=== PATIENT | female | born 1965 | race Hispanic/Latino ===

== ENCOUNTER 2019-02-25 14:11 | Emergency (ER) | payer OTHER ==
[2019-02-25] MEDS ORDERED: IBUPROFEN 200 MG TAB PO ONE (16:10)
[2019-02-25] MEDS ORDERED: HYDROCODONE/APAP 5/325 MG TAB ONE (16:10)
[2019-02-25] MEDS ORDERED: IBUPROFEN 400 MG TAB ONE (16:10)
--- NOTE | 2019-02-25 16:17 | RAD REPORT ---
EXAM DESCRIPTION: CT - Head Brain Wo Cont - 02/25/2019 4:09 pm CLINICAL HISTORY: Fall injury Fall, trauma, head injury COMPARISON: <Comparisons> TECHNIQUE: All CT scans are performed using dose optimization technique as appropriate and may inclu de automated exposure control or mA/KV adjustment according to patient size. FINDINGS: No intracranial hemorrhage, hydrocephalus or extra-axial fluid collection.No areas of brai n edema or evidence of midline shift. The paranasal sinuses and mastoids are clear. The calvarium is intact. IMPRESSION: No acute intracranial abnormality.
--- NOTE | 2019-02-25 16:43 | RAD REPORT ---
EXAM DESCRIPTION: RAD - Hand Right 3 View - 02/25/2019 4:39 pm CLINICAL HISTORY: PAIN Trauma, fall, pain COMPARISON: No comparisons FINDINGS: Mild osteoarthritic changes of fall the radiocarpal joint. No acute fracture or dislocatio n.
--- NOTE | 2019-02-25 16:45 | RAD REPORT ---
EXAM DESCRIPTION: RAD - Elbow Left 3 View - 02/25/2019 4:39 pm CLINICAL HISTORY: PAIN Fall, trauma, pain COMPARISON: No comparisons FINDINGS: Lucency is seen in the radial head most compatible with nondisplaced radial head fracture. Anterior and posterior fat pad elevation is noted. IMPRESSION: Nondisplaced radial head fracture.
--- NOTE | 2019-02-25 16:45 | RAD REPORT ---
EXAM DESCRIPTION: RAD - Wrist Left 3 View - 02/25/2019 4:39 pm CLINICAL HISTORY: PAIN Pain COMPARISON: <Comparisons> FINDINGS: No fracture or dislocation seen. Mild radiocarpal osteoarthritis seen.
--- NOTE | 2019-02-25 16:47 | RAD REPORT ---
EXAM DESCRIPTION: RAD - Hip Right 2 View - 02/25/2019 4:39 pm CLINICAL HISTORY: PAIN COMPARISON: No comparisons FINDINGS: No acute fracture or dislocation.
--- NOTE | 2019-02-25 16:48 | RAD REPORT ---
EXAM DESCRIPTION: RAD - Knee Right 3 View - 02/25/2019 4:38 pm CLINICAL HISTORY: PAIN Fall, pain COMPARISON: No comparisons FINDINGS: Mild medial compartment space narrowing is seen. No fracture or dislocation. Trace suprapa tellar joint effusion.
--- NOTE | 2019-02-25 18:04 | EDPHYS ---
Physician Documentation [facility] Name: Lyla Melo Age: 53 yrs Sex: Female : 1965 Arrival Date: 02/25/2019 Time: 14:16 Bed 9 Private MD: ED Physician Orlando Damon HPI: 02/25 17:00 This 53 yrs old Female presents to ER via EMS with complaints of Fall Injury. pm1 17:00 Details of fall: The patient fell from an upright position, while walking. Onset: The pm1 symptoms/episode began/occurred just prior to arrival. Associated injuries: The patient sustained left elbow, left wrist, right hand, right hip, right knee, and abrasion to nose. Severity of symptoms: in the emergency department the symptoms are unchanged. The patient has not experienced similar symptoms in the past. The patient has not recently seen a physician. Patient tripped on uneven curve and landed with her hands out in front of her. Patient uncertain if she had LOC. No neck pain or current headache. Historical: - Allergies: 14:23 No Known Allergies; sv - PMHx: 14:23 Diabetes - IDDM; sv - PSHx: 14:23 Cholecystectomy; ; sv - Immunization history:: Adult Immunizations up to date. - Social history:: Smoking status: Patient uses tobacco products. - Ebola Screening: : Patient denies travel to an Ebola-affected area in the 21 days before illness onset. ROS: 19:00 Constitutional: Negative for fever, chills, and weight loss, Eyes: Negative for injury, pm1 pain, redness, and discharge, ENT: Negative for injury, pain, and discharge, Neck: Negative for injury, pain, and swelling, Cardiovascular: Negative for chest pain, palpitations, and edema, Respiratory: Negative for shortness of breath, cough, wheezing, and pleuritic chest pain, Abdomen/GI: Negative for abdominal pain, nausea, vomiting, diarrhea, and constipation, Back: Negative for injury and pain, : Negative for injury, bleeding, discharge, and swelling. 19:00 Skin: Negative for injury, rash, and discoloration, Neuro: Negative for headache, weakness, numbness, tingling, and seizure. 19:00 MS/extremity: Positive for pain, of the left elbow and left wrist, right knee, right hip and right hand. Exam: 19:00 Constitutional: This is a well developed, well nourished patient who is awake, alert, pm1 and in no acute distress. Eyes: Pupils equal round and reactive to light, extra-ocular motions intact. Lids and lashes normal. Conjunctiva and sclera are non-icteric and not injected. Cornea within normal limits. Periorbital areas with no swelling, redness, or edema. ENT: Nares patent. No nasal discharge, no septal abnormalities noted. Tympanic membranes are normal and external auditory canals are clear. Oropharynx with no redness, swelling, or masses, exudates, or evidence of obstruction, uvula midline. Mucous membranes moist. Neck: Trachea midline, no thyromegaly or masses palpated, and no cervical lymphadenopathy. Supple, full range of motion without nuchal rigidity, or vertebral point tenderness. No Meningismus. Chest/axilla: Normal chest wall appearance and motion. Nontender with no deformity. No lesions are appreciated. Cardiovascular: Regular rate and rhythm with a normal S1 and S2. No gallops, murmurs, or rubs. Normal PMI, no JVD. No pulse deficits. Respiratory: Lungs have equal breath sounds bilaterally, clear to auscultation and percussion. No rales, rhonchi or wheezes noted. No increased work of breathing, no retractions or nasal flaring. Abdomen/GI: Soft, non-tender, with normal bowel sounds. No distension or tympany. No guarding or rebound. No evidence of tenderness throughout. 19:00 Back: No spinal tenderness. No costovertebral tenderness. Full range of motion. 19:00 Head/face: Exam is negative for barraza signs, deformity, raccoon eyes, Noted is no obvious of injury or deformity except abrasion(s), of the nose. 19:00 Skin: Appearance: normal except for affected area, injury, abrasion(s), small abrasion noted, of the right knee and nose. Vital Signs: 14:22 BP 111 / 85; Pulse 94; Resp 20; Temp 97.5; Pulse Ox 98% ; Weight 78.47 kg; Height 5 ft. sv 2 in. (157.48 cm); Pain 5/10; 19:00 BP 107 / 65; Pulse 78; Resp 18; Pulse Ox 96% on R/A; aj1 14:22 Body Mass Index 31.64 (78.47 kg, 157.48 cm) sv MDM: 15:42 Patient medically screened. brielle 15:56 ED course: Patient reports tetanus shot from PCP Rafa within the past year. pm1 17:54 Data reviewed: vital signs. Data interpreted: Pulse oximetry: on room air is 98 %. pm1 Interpretation: normal. Counseling: I had a detailed discussion with the patient and/or guardian regarding: the historical points, exam findings, and any diagnostic results supporting the discharge/admit diagnosis, radiology results, the need for outpatient follow up, for definitive care, a orthopedic surgeon, to return to the emergency department if symptoms worsen or persist or if there are any questions or concerns that arise at home. 02/25 15:56 Order name: CT Head Brain wo Cont; Complete Time: 16:49 pm1 02/25 15:56 Order name: Hand Right 3 View XRAY; Complete Time: 16:49 pm1 02/25 15:56 Order name: Elbow Left 3 View XRAY; Complete Time: 16:49 pm1 02/25 15:56 Order name: Wrist Left (3 View) XRAY; Complete Time: 16:49 pm1 02/25 15:56 Order name: Knee Right 3 View XRAY; Complete Time: 17:03 pm1 02/25 15:59 Order name: Hip Right 2 View XRAY; Complete Time: 16:49 pm1 02/25 17:03 Order name: Knee Immobilizer; Complete Time: 17:59 pm1 02/25 17:04 Order name: Sling; Complete Time: 17:59 pm1 02/25 17:04 Order name: Posterior Elbow Splint; Complete Time: 17:59 pm1 Administered Medications: 16:01 Drug: [place] 5 mg-325 mg 1 tabs Route: PO; aj1 17:59 Follow up: Response: No adverse reaction; Pain is decreased aj1 16:01 Not Given (Patient states that she took ibuprofen when she fell): Ibuprofen 600 mg PO aj1 once Disposition: 02/26 06:43 Co-signature as Attending Physician, Orlando Damon MD I agree with the assessment and [facility] plan of care. Disposition: 02/25/19 18:03 Discharged to Home. Impression: Nondisplaced fracture of head of left radius, Unspecified sprain of left wrist, Contusion of right hand, Contusion of right knee, Pain in right hip, Abrasion, right knee, Superficial injury of head - abrasion to nose. - Condition is Stable. - Discharge Instructions: Abrasion, Cast or Splint Care, Adult, Elbow Fracture Treated With ORIF, Head Injury, Adult, Knee Immobilizer, Wrist Pain, Hip Pain, How to Use a Sling, Wrist Sprain. - Prescriptions for Tylenol- Codeine #3 300-30 mg Oral Tablet - take 2 tablets by ORAL route every 6 hours As needed; 20 tablet. - Medication Reconciliation Form, Thank You Letter, Antibiotic Education, Prescription Opioid Use form. - Follow up: Emergency Department; When: As needed; Reason: Worsening of condition. Follow up: Private Physician; When: 2 - 3 days; Reason: Recheck today's complaints, Continuance of care, Re-evaluation by your physician. - Problem is new. - Symptoms have improved. Signatures: Dispatcher [employer] EDMarina Cueto RN RN aj1 Mayra Maldonado RN RN Orlando Damon MD MD cha Marinas, Patrick, NP KILN MECHANIC pm1 Corrections: (The following items were deleted from the chart) 02/25 19:02 18:03 02/25/2019 18:03 Discharged to Home. Impression: Nondisplaced fracture of head of aj1 left radius; Unspecified sprain of left wrist; Contusion of right hand; Contusion of right knee; Pain in right hip; Abrasion, right knee; Superficial injury of head - abrasion to nose. Condition is Stable. Forms are Medication Reconciliation Form, Thank You Letter, Antibiotic Education, Prescription Opioid Use. Follow up: Emergency Department; When: As needed; Reason: Worsening of condition. Follow up: Private Physician; When: 2 - 3 days; Reason: Recheck today's complaints, Continuance of care, Re-evaluation by your physician. Problem is new. Symptoms have improved. pm1
--- NOTE | 2019-02-25 18:04 | ER ---
Nurse's Notes [facility] Name: Lyla Melo Age: 53 yrs Sex: Female : 1965 Arrival Date: 02/25/2019 Time: 14:16 Bed 9 Private MD: Diagnosis: Nondisplaced fracture of head of left radius;Unspecified sprain of left wrist;Contusion of right hand;Contusion of right knee;Pain in right hip;Abrasion, right knee;Superficial injury of head-abrasion to nose Presentation: 02/25 14:21 Presenting complaint: Patient states: tripped and fell on the concrete face first. c/o sv dale arm pain with L>R and dale leg pain with R>L. Denies LOC. Care prior to arrival: None. Mechanism of Injury: Fall from standing position. 14:21 Acuity: JESSICA 4 sv 14:21 Method Of Arrival: EMS: [facility] sv 14:22 Transition of care: patient was not received from another setting of care. Onset of sv symptoms was February 25, 2019. 18:02 Risk Assessment: Do you want to hurt yourself or someone else? Patient reports no aj1 desire to harm self or others. Initial Sepsis Screen: Does the patient meet any 2 criteria? No. Patient's initial sepsis screen is negative. Does the patient have a suspected source of infection? No. Patient's initial sepsis screen is negative. Triage Assessment: 14:23 General: Appears uncomfortable, well developed, Behavior is cooperative, crying. Pain: sv Complains of pain in right arm, left arm, right leg and left leg Pain currently is 5 out of 10 on a pain scale. Neuro: Level of Consciousness is awake, alert, obeys commands, Oriented to person, place, time, situation. Respiratory: Respiratory effort is even, unlabored, Respiratory pattern is regular, symmetrical. Trauma Activation: Not Applicable Physician: ED Physician; Name: ; Notified At: ; Arrived At: Physician: General Surgeon; Name: ; Notified At: ; Arrived At: Physician: Radiology; Name: ; Notified At: ; Arrived At: Physician: Respiratory; Name: ; Notified At: ; Arrived At: Physician: Lab; Name: ; Notified At: ; Arrived At: Historical: - Allergies: 14:23 No Known Allergies; sv - PMHx: 14:23 Diabetes - IDDM; sv - PSHx: 14:23 Cholecystectomy; ; sv - Immunization history:: Adult Immunizations up to date. - Social history:: Smoking status: Patient uses tobacco products. - Ebola Screening: : Patient denies travel to an Ebola-affected area in the 21 days before illness onset. Screenin:48 Abuse screen: Denies threats or abuse. Denies injuries from another. Nutritional aj1 screening: No deficits noted. Tuberculosis screening: No symptoms or risk factors identified. 18:02 Fall Risk Fall in past 12 months (25 points). Secondary diagnosis (15 points) impaired aj1 mobility, No IV (0 pts). Ambulatory Aid- None/Bed Rest/Nurse Assist (0 pts). Gait- Impaired (20 pts.). Mental Status- Oriented to own ability (0 pts). Total Rasheed Fall Scale indicates High Risk Score (45 or more points). As available patient and family educated on Fall Prevention Program and Strategies. Assessment: 16:48 General: Appears in no apparent distress. uncomfortable, Behavior is calm, cooperative, aj1 appropriate for age. Pain: Complains of pain in right arm, left arm, right leg and left leg. Neuro: Level of Consciousness is awake, alert, obeys commands, Oriented to person, place, time, situation, Denies LOC, vomiting. Cardiovascular: Patient's skin is warm and dry. Respiratory: Airway is patent Respiratory effort is even, unlabored, Respiratory pattern is regular, symmetrical. GI: No signs and/or symptoms were reported involving the gastrointestinal system. : No signs and/or symptoms were reported regarding the genitourinary system. EENT: No signs and/or symptoms were reported regarding the EENT system. Derm: Skin is pink, warm \T\ dry. normal. Musculoskeletal: Circulation, motion, and sensation intact. 17:45 Reassessment: Patient appears in no apparent distress at this time. No changes from aj1 previously documented assessment. Patient and/or family updated on plan of care and expected duration. Pain level reassessed. Patient is alert, oriented x 3, equal unlabored respirations, skin warm/dry/pink. 18:00 Reassessment: Splint and knee immobilizer checked by Lefty Meneses NP. No changes needed aj1 at this time. 19:01 Reassessment: Patient appears in no apparent distress at this time. No changes from aj1 previously documented assessment. Patient and/or family updated on plan of care and expected duration. Pain level reassessed. Patient is alert, oriented x 3, equal unlabored respirations, skin warm/dry/pink. Vital Signs: 14:22 BP 111 / 85; Pulse 94; Resp 20; Temp 97.5; Pulse Ox 98% ; Weight 78.47 kg; Height 5 ft. sv 2 in. (157.48 cm); Pain 5/10; 19:00 BP 107 / 65; Pulse 78; Resp 18; Pulse Ox 96% on R/A; aj1 14:22 Body Mass Index 31.64 (78.47 kg, 157.48 cm) sv ED Course: 14:16 Patient arrived in ED. mr 14:22 Triage completed. sv 14:23 Arm band placed on. sv 15:38 Geo Meneses NP is PHCP. pm1 15:38 Orlando Damon MD is Attending Physician. pm1 15:49 Marina Katz RN is Primary Nurse. aj1 16:[address] via wheelchair. nj 16:08 CT completed. Patient tolerated procedure well. Patient moved back from CT. nj 16:09 CT Head Brain wo Cont In Process Unspecified. EDMS 16:39 Hand Right 3 View XRAY In Process Unspecified. EDMS 16:39 Elbow Left 3 View XRAY In Process Unspecified. EDMS 16:39 Wrist Left (3 View) XRAY In Process Unspecified. EDMS 16:39 Knee Right 3 View XRAY In Process Unspecified. EDMS 16:39 Hip Right 2 View XRAY In Process Unspecified. EDMS 16:48 Patient has correct armband on for positive identification. aj1 16:48 No provider procedures requiring assistance completed. aj1 17:59 Orthoglass splint: posterior long arm splint applied to the left arm. Knee immobilizer aj1 applied on right knee. Sling applied to right arm. 18:02 Patient did not have IV access during this emergency room visit. aj1 Administered Medications: 16:01 Drug: [place] 5 mg-325 mg 1 tabs Route: PO; aj1 17:59 Follow up: Response: No adverse reaction; Pain is decreased aj1 16:01 Not Given (Patient states that she took ibuprofen when she fell): Ibuprofen 600 mg PO aj1 once Outcome: 18:03 Discharge ordered by . pm1 19:01 Discharged to home via wheelchair. aj1 19:01 Condition: good 19:01 Discharge instructions given to patient, family, Instructed on discharge instructions, follow up and referral plans. no drinking with medication, no driving heavy equipment, medication usage, Demonstrated understanding of instructions, follow-up care, medications, Prescriptions given X 2. 19:02 Patient left the ED. aj1 Signatures: Dispatcher [employer] EDMarina Cueto RN RN aj1 Mayra Maldonado RN RN Kassi Paulson mr Geo Meneses, SUPERVISOR DOG LICENSE OFFICER SUPERVISOR DOG LICENSE OFFICER pm1 Phillip Nugent Corrections: (The following items were deleted from the chart) 14:23 14:22 BP 140 / 108; Pulse 94bpm; Resp 20bpm; Pulse Ox 98%; Temp 97.5F; 78.47 kg; Height sv 5 ft. 2 in.; BMI: 31.6; Pain 0/10; sv 14:24 14:22 BP 140 / 108; Pulse 94bpm; Resp 20bpm; Pulse Ox 98%; Temp 97.5F; 78.47 kg; Height sv 5 ft. 2 in.; BMI: 31.6; Pain 5/10; sv
== END 2019-02-25 19:02 | disposition home or self-care (01) ==
LOC: ER 14:11
PROC: 2W39X1Z Immobilization of Left Upper Extremity using Splint (ICD-10-PCS; principal; 2019-02-25)
DX: S52.125A Nondisplaced fracture of head of left radius, initial encounter for closed fracture (principal); S63.502A Unspecified sprain of left wrist, initial encounter; S00.31XA Abrasion of nose, initial encounter; S80.211A Abrasion, right knee, initial encounter; S80.01XA Contusion of right knee, initial encounter; S60.221A Contusion of right hand, initial encounter; M25.551 Pain in right hip; W01.0XXA Fall on same level from slipping, tripping and stumbling without subsequent striking against object, initial encounter; Y93.01 Activity, walking, marching and hiking; Y92.9 Unspecified place or not applicable; Z72.0 Tobacco use
CPT/HCPCS: 70450; 99284

== ENCOUNTER 2021-06-21 14:27 | Emergency (ER) | payer OTHER ==
--- OUTSIDE RECORDS SUMMARY | 2021-06-21 15:14 | XMS REPORT | Continuity of Care Document ---
:[address] [facility] t Address [address] [place] [address] Care Team Providers Name Role Phone Unavailable Unavailable Unavailable Problems This patient has no known problems. Allergies, Adverse Reactions, Alerts This patient has no known allergies or adverse reactions. Medications Ordered Filled Start Stop Current Ordering Indication Dosage Frequency Signature Comments Components Source Medication Medication Date Date Medication? Clinician (SIG) Name Name Xigduo XR Xigduo XR Yes Cb take [address] [facility] tablets by [facility] - mouth once [facility] daily for l 30 days [facility] Atorvastati Atorvastati Yes Cb [address] [facility] n Calcium n Calcium [facility] Lisinopril Lisinopril Yes Cb [address] [facility] Tresiba Tresiba Yes Cb inject [address] FlexTouch FlexTouch [facility] units [facility] Daily Daily Yes Cb [address] [facility] [address] Vitamin Vitamin [facility] Immunizations Ordered Filled Immunization Date Status Comments Sourc e Immunization Name Name Flucelvax - Flucelvax - 2019-08-[address] [facility] - multidose vial multidose vial 00:00:00 [facility] Procedures This patient has no known procedures. Encounters Start End Encounter Admission Attending Care Care Encounter Source Date/Time Date/Time Type Type Clinicians Facility Department ID 2021-03-31 2021-03-31 [id number] 2021-01-13 2021-01-13 [facility] [id number] [facility] 2020-12-01 2020-12-01 [facility] [id number] [facility] 2020-11-23 2020-11-23 [facility] [id number] [facility] 2020-08-17 2020-08-17 [facility] [id number] 2020-04-19 2020-04-19 [facility] [id number] [facility] 16[facility]15[facility] 16:15:00 [facility] [employer] [facility] Medicine Medicine Outpati ent Clinics 2020-03-31 2020-03-31 [facility] [id number] [facility] 15:31:00 15:31:00 [facility] Medicine Medicine Outpati ent Clinics 2020-03-30 2020-03-30 [facility] [id number] 14:23:00 14:23:00 [facility] Medicine l Medicine Outpati ent Clinics 2019-11-26 2019-11-26 [facility] [id number] [facility] [address] 16:30:00 16:30:00 t [employer] [facility] Medicine l Medicine Outpati ent Clinics 2019-11-19 2019-11-19 [facility] [id number] [facility] 16:39:00 16:39:00 t [employer] [facility] Medicine l Medicine Outpati ent Clinics 2019-08-26 2019-08-26 [facility] [id number] [address] 16:00:00 16:00:00 t [employer] [facility] Out[facility] Clinics 2019-05-26 2019-05-26 Outpatient [id number] [facility] 16[facility]30[facility]00 [facility] [employer] [facility] Medicine [facility] Results This patient has no known results.
--- NOTE | 2021-06-21 15:27 | RAD REPORT ---
EXAM DESCRIPTION: CT - [id number] - 06/21/2021 3:07 pm CLINICAL HISTORY: Trauma, head and neck injury. facial droop;Headache COMPARISON: No comparisons TECHNIQUE: Axial 5 mm thick images of the head were obtained. Axial 2 mm thick images of the cervical spine were obtained with sagittal and coronal reconstruction images generated and reviewed. All CT scans are performed using dose optimization technique as appropriate and may include automated exposure control or mA/KV adjustment according to patient size. FINDINGS: CT HEAD WITHOUT CONTRAST: No acute hemorrhage, hydrocephalus or extra-axial collection is identified.No areas of brain edema or midline shift. The paranasal sinuses and mastoids are clear.The calvarium is intact. CT CERVICAL SPINE WITHOUT CONTRAST: No fracture or subluxation.Mild midcervical degenerative changes are present.No prevertebral soft tis sues swelling is identified. 8-9 mm nodule is present in the right upper lung. IMPRESSION: No acute intracranial or cervical spine findings. 8-9 mm nodules present right upper lung. Recommend followup CT chest further assessment. This could b e performed on a nonemergent basis.
--- NOTE | 2021-06-21 16:18 | ER ---
Nurse's Notes [facility] Name: Lyla Melo Age: 55 yrs Sex: Female : 1965 Arrival Date: 06/21/2021 Time: 14:33 Bed Waiting Private MD: Diagnosis: Dinero's palsy Presentation: 06/21 14:47 Chief complaint: Patient states: Pt stated she fell and woke up on the ground kg unwitnessed and pt stated she thinks she LOC. One week ago pt stated, "My sister stated the left side of my face looks droopy and when doing mouth wash it just came out fo my mouth I had no control but I've had bells palsy before and I thought it was that so I've just been massaging my face at home. ". Coronavirus screen: Client denies travel out of the [place] in the last 14 days. At this time, unable to obtain information related to travel outside the [place] Ebola Screen: Patient negative for fever greater than or equal to 101.5 degrees Fahrenheit, and additional compatible Ebola Virus Disease symptoms Patient denies exposure to infectious person. Patient denies travel to an Ebola-affected area in the 21 days before illness onset. Initial Sepsis Screen: Does the patient meet any 2 criteria? No. Patient's initial sepsis screen is negative. Does the patient have a suspected source of infection? No. Patient's initial sepsis screen is negative. Risk Assessment: Do you want to hurt yourself or someone else? Patient reports no desire to harm self or others. Onset of symptoms was July 08, 2021. 14:47 Method Of Arrival: Ambulatory kg 14:47 Acuity: JESSICA 3 kg Triage Assessment: 14:55 Headache History: Denies prior headaches. General: Appears in no apparent distress. kg distressed, Behavior is calm, cooperative, appropriate for age, quiet. Pain: Complains of pain in left presybeterian Pain currently is 6 out of 10 on a pain scale. Pain began 2 wks ago Also complains of. Neuro: Level of Consciousness is awake, alert, obeys commands, Oriented to person, place, time, situation, Appropriate for age. Historical: - Allergies: 14:55 No Known Allergies; kg - Home Meds: 14:55 None [Active]; kg - PMHx: 14:55 Diabetes - IDDM; kg - PSHx: 14:55 None; kg - Immunization history:: Adult Immunizations not up to date, Client reports receiving the 2nd dose of the Covid vaccine, Date received: January 2021 Pfizer Client reports receiving the 1st dose of the Covid vaccine, January 2021 [employer]. - Social history:: Smoking status: Patient denies any tobacco usage or history of. - Family history:: not pertinent. - Hospitalizations: : No recent hospitalization is reported. Screenin:59 Abuse screen: Denies threats or abuse. Denies injuries from another. Nutritional kg screening: No deficits noted. Tuberculosis screening: No symptoms or risk factors identified. Fall Risk None identified. Vital Signs: 14:47 BP 113 / 57; Pulse 95; Resp 20; Temp 97.6(TE); Pulse Ox 99% on R/A; Weight 80.6 kg; kg Height 5 ft. 1 in. (154.94 cm); 14:47 Body Mass Index 33.57 (80.60 kg, 154.94 cm) kg Dania Coma Score: 16:16 Eye Response: spontaneous(4). Verbal Response: oriented(5). Motor Response: obeys rn commands(6). Total: 15. ED Course: 14:33 Patient arrived in ED. ds1 14:55 Triage completed. kg 14:55 Arm band placed on right wrist. kg 14:58 Blayne Ford MD is Attending Physician. rn 14:59 Patient has correct armband on for positive identification. kg 15:02 Head C Spine Mpr Wo Con In Process Unspecified. EDMS 16:17 Basil Woo MD is Referral Physician. rn Administered Medications: No medications were administered Outcome: 16:17 Discharge ordered by . rn 16:29 Patient left the ED. iw Signatures: Dispatcher [employer] EDMS RiggsNicky rivera ds1 Yaritza Orona RN RN iw Blayne Ford MD MD rn Graham, Kristen, RN RN kg
--- NOTE | 2021-06-21 16:18 | EDPHYS ---
Physician Documentation [facility] Name: Lyla Melo Age: 55 yrs Sex: Female : 1965 Arrival Date: 06/21/2021 Time: 14:33 Bed Waiting Private MD: ED Physician Blayne Ford HPI: 06/21 15:00 This 55 yrs old Female presents to ER via Ambulatory with complaints of rn Headache, Facial Droop - 2 wks ago. 15:00 The patient complains of pain to the top of head and left shinto. The patient describes rn the headache as aching. Onset: The symptoms/episode began/occurred 2 week(s) ago. Associated signs and symptoms: Pertinent positives: weakness, Pertinent negatives: fever, paresthesias, Photophobia rash, vision changes, vision loss, vomiting, vertigo. Severity of symptoms: At its worst the pain was mild, in the emergency department the pain has improved. The symptoms are alleviated by nothing. the symptoms are aggravated by nothing. The patient has experienced similar episodes in the past. The patient has not recently seen a physician. Reports left sided facial droop and headache for 2 weeks. 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 Seen by PCP and told to come in to be safe for CT scan of head. Patient denies any other focal neurological deficits.. Historical: - Allergies: 14:55 No Known Allergies; kg - Home Meds: 14:55 None [Active]; kg - PMHx: 14:55 Diabetes - IDDM; kg - PSHx: 14:55 None; kg - Immunization history:: Adult Immunizations not up to date, Client reports receiving the 2nd dose of the Covid vaccine, Date received: January 2021 [employer] Client reports receiving the 1st dose of the Covid vaccine, January 2021 [employer]. - Social history:: Smoking status: Patient denies any tobacco usage or history of. - Family history:: not pertinent. - Hospitalizations: : No recent hospitalization is reported. ROS: 15:00 Constitutional: Negative for fever, chills, and weight loss, Eyes: Negative for injury, rn pain, redness, and discharge, ENT: Negative for injury, pain, and discharge, Neck: Negative for injury, pain, and swelling, Cardiovascular: Negative for chest pain, palpitations, and edema, Respiratory: Negative for shortness of breath, cough, wheezing, and pleuritic chest pain, Abdomen/GI: Negative for abdominal pain, nausea, vomiting, diarrhea, and constipation, Back: Negative for injury and pain, : Negative for injury, bleeding, discharge, and swelling, MS/Extremity: Negative for injury and deformity, Skin: Negative for injury, rash, and discoloration, Neuro: Negative for numbness, tingling, and seizure. Exam: 15:00 Constitutional: This is a well developed, well nourished patient who is awake, alert, rn and in no acute distress. Head/Face: Normocephalic, atraumatic. Eyes: Pupils equal round and reactive to light, extra-ocular motions intact. Lids and lashes normal. Conjunctiva and sclera are non-icteric and not injected. Cornea within normal limits. Periorbital areas with no swelling, redness, or edema. Cardiovascular: Regular rate and rhythm. No pulse deficits. Respiratory: No increased work of breathing, no retractions or nasal flaring. Skin: Warm, dry MS/ Extremity: Pulses equal, no cyanosis. Neurovascular intact. Full, normal range of motion. Equal circumference. Neuro: Awake and alert, GCS 15, oriented to person, place, time, and situation. Cranial nerves II-XII grossly intact. Motor strength 5/5 in all extremities. Sensory grossly intact. Cerebellar exam normal. Vital Signs: 14:47 BP 113 / 57; Pulse 95; Resp 20; Temp 97.6(TE); Pulse Ox 99% on R/A; Weight 80.6 kg; kg Height 5 ft. 1 in. (154.94 cm); 14:47 Body Mass Index 33.57 (80.60 kg, 154.94 cm) kg Dania Coma Score: 16:16 Eye Response: spontaneous(4). Verbal Response: oriented(5). Motor Response: obeys rn commands(6). Total: 15. MDM: 16:16 Differential diagnosis: subdural hematoma, tension headache, traumatic injuries, rn vasomotor headache, Dinero's palsy. Data reviewed: vital signs, nurses notes, radiologic studies, CT scan, and as a result, I will discharge patient. Counseling: I had a detailed discussion with the patient and/or guardian regarding: the historical points, exam findings, and any diagnostic results supporting the discharge/admit diagnosis, radiology results, the need for outpatient follow up, to return to the emergency department if symptoms worsen or persist or if there are any questions or concerns that arise at home. Special discussion: I discussed with the patient/guardian in detail that at this point there is no indication for admission to the hospital. It is understood, however, that if the symptoms persist or worsen the patient needs to return immediately for re-evaluation. Based on the history and exam findings, there is no indication for further emergent testing or inpatient evaluation. I discussed with the patient/guardian the need to see the neurologist for further evaluation of the symptoms. ED course: No acute findings on CT head or C-spine. Patient with Dinero's palsy on the left side. This is the third time. Will DC home with steroids and neuro follow-up. Patient already taping eye shut and using eyedrops.. 16:17 Patient medically screened. rn 06/21 15:00 Order name: Head C Spine Mpr Wo Con; Complete Time: 16:15 EDMS Administered Medications: No medications were administered Disposition Summary: 06/21/21 16:17 Discharge Ordered Location: Home rn Problem: new rn Symptoms: have improved rn Condition: Stable rn Diagnosis - Dinero's palsy rn Followup: rn - With: Basil Woo MD - When: As needed - Reason: Recheck today's complaints, Re-evaluation by your physician Discharge Instructions: - Discharge Summary Sheet rn - Dinero Palsy, Adult rn Forms: - Medication Reconciliation Form rn - Thank You Letter rn - Antibiotic rn pediatric - Prescription Opioid Use rn Prescriptions: - Prednisone 20 mg Oral Tablet - take 1 tablet by ORAL route as directed for 10 days Take 2 tablets by mouth rn daily for 5 days, followed by 1 tablet by mouth daily for 5 days for a total of 10 days.; 15 tablet; Refills: 0, Product Selection Permitted Signatures: Dispatcher [employer] EDMS Blayne Ford MD MD rn Graham, Kristen, RN RN kg Corrections: (The following items were deleted from the chart) 15:00 14:51 Head Brain Wo Cont+CT.RAD.BRZ ordered. EDMS EDMS
[2021-06-21 17:19] VITALS: BP 113/57; TEMP 97.6; O2SAT 99
== END 2021-06-21 16:29 | disposition home or self-care (01) ==
LOC: ER 14:27
DX: G51.0 Bell's palsy (principal); E11.9 Type 2 diabetes mellitus without complications
CPT/HCPCS: 70450; 72125; 99282

== ENCOUNTER 2021-08-11 15:36 | Emergency (ER) | payer OTHER ==
--- NOTE | 2021-08-11 17:24 | RAD REPORT ---
EXAM DESCRIPTION: CT - Head Brain Wo Cont - 08/11/2021 5:17 pm CLINICAL HISTORY: Headache COMPARISON: 2019 TECHNIQUE: Computed axial tomography of the head was obtained. IV contrast was not requested. All CT scans are performed using dose optimization technique as appropriate and may include automated exposure control or mA/KV adjustment according to patient size. FINDINGS: An intracranial bleed is not seen . The ventricles are normal in caliber. No extra-axial fluid collection is noted. Empty sella turcica. Fluid within the sinuses/ mastoids is not seen. IMPRESSION: No acute intracranial abnormality is seen. If patient's symptoms persist MRI of the bra in would be recommended.
[2021-08-11] MEDS ORDERED: METOCLOPRAMIDE 10 MG/2mL INJ ONE (17:42)
[2021-08-11] MEDS ORDERED: DIPHENHYDRAMINE 50 MG/ML VIAL ONE (17:42)
[2021-08-11] MEDS ORDERED: NA CHLORIDE 0.9% 500 ML ONE (17:43)
[2021-08-11] MEDS ORDERED: dexAMETHasone 10 MG/ML VIAL ONE (17:43)
--- NOTE | 2021-08-11 17:53 | RAD REPORT ---
EXAM DESCRIPTION: MRI - Brain Wo Cont - 08/11/2021 5:45 pm CLINICAL HISTORY: Numbness COMPARISON: Head CT August 11, 2021 TECHNIQUE: Axial, sagittal, and coronal magnetic resonance images of the brain were obtained. FINDINGS: Empty sella turcica Diffusion-weighted/ADC mapping does not reveal evidence of acute infarction. The ventricles are normal caliber. An extra-axial fluid collection is not noted. Fluid within the sinuses/mastoids is not seen IMPRESSION: No acute intracranial abnormality noted
[2021-08-11 18:33] LABS: Absolute Lymphocytes (CBC) 2.1 K/uL (0.7-4.9); Basophils % 0.4 % (0-1.3); Hematocrit 42.6 % (36.0-45.0); Lymphocytes % 25.8 % (15.3-44.8); MPV 9.7 fL (7.6-11.3); Protime INR 0.99; RBC Red Blood Cell Count 4.84 M/uL (3.86-4.86)
[2021-08-11 18:44] LABS: ALT/SGPT 39 U/L (12-78); AST/SGOT 25 U/L (15-37); Albumin 3.8 g/dL (3.4-5.0); Alkaline Phosphatase 105 U/L (45-117); BUN Blood Urea Nitrogen 15 mg/dL (7-18); Bicarbonate 31 mmol/L (21-32); Bilirubin Direct < 0.1 mg/dL (0-0.2); Bilirubin Total 0.3 mg/dL (0.2-1.0); Glucose Level 135 mg/dL (74-106); Magnesium 2.3 mg/dL (1.8-2.4); Potassium 4.2 mmol/L (3.5-5.1); Protein, Total 7.7 g/dL (6.4-8.2); Sodium Level 142 mmol/L (136-145)
--- NOTE | 2021-08-11 19:21 | EDPHYS ---
Physician Documentation [facility] Name: Lyla Melo Age: 55 yrs Sex: Female : 1965 Arrival Date: 08/11/2021 Time: 15:38 Bed 13 Private MD: ED Physician Blayne Ford HPI: 08/11 17:00 This 55 yrs old Female presents to ER via Ambulatory with complaints of cp Numbness Of Face, Facial Pain. 17:00 The patient's problem is reported as a facial droop, on right, paresthesias, in right cp side of face, right side headache started today. 17:00 Duration: The episode is continuous, patient states numbness and facial droop to right cp side of face started 08-07-2021. 17:00 Context: symptoms became apparent upon waking. Associated signs and symptoms: Pertinent cp negatives: abdominal pain, chest pain, palpitations, weakness. Patient's baseline: Neuro: alert and fully oriented, Motor: left-sided facial droop, Ambulation: walks without assistance, Speech: normal. Patient reports history of left side Dinero's palsy diagnosed last month. Took prescribed steroids and antivirals but did not follow-up. Historical: - Allergies: 15:51 No Known Allergies; vg1 - Home Meds: 15:51 Glimepiride Oral [Active]; atorvastatin oral [Active]; Lisinopril Oral [Active]; vg1 Insulin [Active]; - PMHx: 15:51 Diabetes - IDDM; Hypertensive disorder; High Cholesterol; vg1 - Immunization history:: Adult Immunizations up to date, Client reports receiving the 2nd dose of the Covid vaccine. - Social history:: Smoking status: Patient reports the use of cigarette tobacco products, smokes one pack cigarettes per day. ROS: 17:05 Constitutional: Negative for body aches, chills, fever, malaise. cp 17:05 Eyes: Positive for tearing of right eye, Negative for blurry vision, redness. cp 17:05 Neck: Negative for pain with movement, pain at rest, stiffness. 17:05 Cardiovascular: Negative for chest pain, edema, palpitations. 17:05 Respiratory: Negative for cough, shortness of breath, wheezing. 17:05 Abdomen/GI: Negative for abdominal pain, nausea, vomiting, and diarrhea. 17:05 Neuro: Positive for headache, numbness, weakness, of the right side of face. 17:05 All other systems are negative. Exam: 17:10 Constitutional: The patient appears in no acute distress, alert, awake, cp non-diaphoretic, non-toxic, well developed, well nourished. 17:10 Head/face: Noted is tenderness, that is mild, of the right mormonism, right side facial cp droop, right side flattening of forehead and nasal/labial folds. 17:10 Eyes: Pupils: equal, round, and reactive to light and accomodation, Extraocular movements: intact throughout, Conjunctiva: normal, no exudate, no injection, Sclera: no appreciated abnormality. 17:10 ENT: External ear(s): are unremarkable, Ear canal(s): are normal, clear, TM's: dullness, bilaterally, Mouth: Lips: moist, Oral mucosa: moist, Tongue: no deviation with protrusion, Posterior pharynx: Airway: no evidence of obstruction, patent, Tonsils: are normal in appearance, Voice: is normal. 17:10 Neck: ROM/movement: is normal, is supple, without pain, no range of motions limitations, no meningismus, no nuchal rigidity, Lymph nodes: no appreciated lymphadenopathy. 17:10 Chest/axilla: Inspection: normal. 17:10 Cardiovascular: Rate: normal, Rhythm: regular. 17:10 Respiratory: the patient does not display signs of respiratory distress, Respirations: normal, no use of accessory muscles, no retractions, labored breathing, is not present, Breath sounds: are clear throughout. 17:10 Abdomen/GI: Exam negative for discomfort, distension, guarding, Inspection: abdomen appears normal. 17:10 Skin: no rash present. 17:10 Neuro: Orientation: to person, place \\T\\ time. Mentation: is normal, Motor: moves all fours, strength is normal, Sensation: numbness, that is moderate, of the right side of face. 18:00 Radiologist reports: no acute findings cp 18:22 ECG was reviewed by the Attending Physician. cp Vital Signs: 15:48 BP 161 / 95; Pulse 79; Resp 16; Temp 97.9; Pulse Ox 100% ; Weight 79.38 kg; Height 5 vg1 ft. 0 in. (152.40 cm); Pain 0/10; 16:55 BP 161 / 95; Pulse 79; Resp 16; Temp 97.9; Pulse Ox 100% ; aj2 18:58 BP 147 / 78; Pulse 82; Resp 18; Temp 97.8; Pulse Ox 100% ; aj2 19:32 BP 145 / 74; Pulse 80; Resp 18; Temp 98.0; Pulse Ox 99% on R/A; Pain 0/10; kc4 15:48 Body Mass Index 34.18 (79.38 kg, 152.40 cm) vg1 Dania Coma Score: 19:32 Eye Response: spontaneous(4). Verbal Response: oriented(5). Motor Response: obeys kc4 commands(6). Total: 15. MDM: 16:52 Patient medically screened. cp 17:00 Differential diagnosis: CVA, TIA, metabolic disorder, drug effects. cp 19:20 Data reviewed: vital signs, nurses notes, lab test result(s), EKG, radiologic studies, cp CT scan, I have discussed the patient's presentation/case with the attending Emergency Department Physician; and as a result, I will discharge patient. 19:20 Counseling: I had a detailed discussion with the patient and/or guardian regarding: the cp historical points, exam findings, and any diagnostic results supporting the discharge/admit diagnosis, lab results, radiology results, the need for outpatient follow up, an opthalmologist, to return to the emergency department if symptoms worsen or persist or if there are any questions or concerns that arise at home. Response to treatment: the patient's symptoms have markedly improved after treatment, headache markedly improved. Discussed results of labs and radiology studies. Will discharge to home for continued monitoring. 08/11 16:57 Order name: Basic Metabolic Panel; Complete Time: 19:13 08/11 19:13 Interpretation: Normal except: CL 108; GLUC 135. 08/11 16:57 Order name: CBC with Diff; Complete Time: 19:13 08/11 19:13 Interpretation: Reviewed. 08/11 16:57 Order name: LFT's; Complete Time: 19:13 08/11 16:57 Order name: Magnesium; Complete Time: 19:13 08/11 16:57 Order name: PT-INR; Complete Time: 19:13 08/11 18:28 Order name: COVID-19 : Document "Date of Symptom Onset" if Symptomatic. 08/11 16:55 Order name: MRI - Brain Wo Cont; Complete Time: 17:55 mt 08/11 16:57 Order name: CT Head Brain wo Cont; Complete Time: 17:55 cp 08/11 16:57 Order name: EKG; Complete Time: 16:57 cp 08/11 16:57 Order name: Cardiac monitoring; Complete Time: 18:27 cp 08/11 16:57 Order name: EKG - Nurse/Tech; Complete Time: 18:27 cp 08/11 16:57 Order name: IV Saline Lock; Complete Time: 18:27 cp 08/11 16:57 Order name: Labs collected and sent; Complete Time: 18:27 08/11 16:58 Order name: Visual Acuity; Complete Time: 19:34 cp EC:22 Rate is 77 beats/min. Rhythm is regular. SD interval is normal. QRS interval is normal. cp QT interval is normal. T waves are Inverted in lead aVR. Interpreted by me. Reviewed by me. Administered Medications: 18:34 Drug: Benadryl (diphenhydrAMINE) 25 mg Route: IVP; Site: right antecubital; aj2 19:34 Follow up: Response: No adverse reaction 4 18:34 Drug: NS 0.9% 500 ml Route: IV; Rate: bolus; Site: left antecubital; aj2 19:34 Follow up: Response: No adverse reaction; IV Status: Completed infusion kc4 18:35 Drug: Reglan (metoCLOPramide) 10 mg Route: IVP; Site: right antecubital; aj2 19:35 Follow up: Response: No adverse reaction kc4 18:35 Drug: Decadron - Dexamethasone 10 mg Route: IVP; Site: right antecubital; aj2 19:34 Follow up: Response: No adverse reaction [facility] Disposition: 19:30 Chart complete. 08/12 07:56 Co-signature as Attending Physician, Orlando GIRALDO I agree with the assessment and plan rn of care. Attestation: The patient's history, exam findings, diagnostics, and a summary of any interventions or procedures was reviewed in detail with Orlando GIRALDO. Disposition Summary: 08/11/21 19:21 Discharge Ordered Location: Home cp Problem: new cp Symptoms: have improved cp Condition: Stable cp Diagnosis - Dinero's palsy cp Followup: cp - With: Afshin Alfredo MD - When: 2 - 3 days - Reason: Recheck today's complaints Followup: cp - With: Cb Craig DO - When: 2 - 3 days - Reason: Recheck today's complaints Discharge Instructions: - Discharge Summary Sheet cp - Dinero Palsy, Adult cp Forms: - Medication Reconciliation Form cp - Thank You Letter cp - Antibiotic Education cp - Prescription Opioid Use cp Prescriptions: - Prednisone 20 mg Oral Tablet - take 3 tablets by ORAL route once daily for 5 days then take 2 tablets daily cp for 3 days, then 1 tablet daily for 2 days; 23 tablet; Refills: 0, Product Selection Permitted - Acyclovir 400 mg Oral Tablet - take 1 tablet by ORAL route every 8 hours; 30 tablet; Refills: 0, Product cp Selection Permitted Signatures: Dispatcher [employer] EDMS Blayne Ford MD MD rn Attema, Lee, [employer]1 Orlando Jama PA PA Magalis Alfaro RN RN vg1 Manohar Zheng aj2 Junie Coon kc4 Corrections: (The following items were deleted from the chart) 08/11 18:49 18:30 CORONAVIRUS+MR.LAB.BRZ ordered. EDMS EDMS 18:50 18:29 CORONAVIRUS ordered. EDMS EDMS
--- NOTE | 2021-08-11 19:21 | ER ---
Nurse's Notes [facility] Name: Lyla Melo Age: 55 yrs Sex: Female : 1965 Arrival Date: 08/11/2021 Time: 15:38 Bed 13 Private MD: Diagnosis: Dinero's palsy Presentation: 08/11 15:48 Chief complaint: Patient states: Last month was seen in ED for facial numbness on Left vg1 side dx [place] Palsy. Pt states is having Right sided facial numbness that began 08/07/21 and today is having pain on Right side of face. Coronavirus screen: Vaccine status: Patient reports receiving the 2nd dose of the covid vaccine. Ebola Screen: Patient negative for fever greater than or equal to 101.5 degrees Fahrenheit, and additional compatible Ebola Virus Disease symptoms. Initial Sepsis Screen: Does the patient meet any 2 criteria? No. Patient's initial sepsis screen is negative. Does the patient have a suspected source of infection? No. Patient's initial sepsis screen is negative. Risk Assessment: Do you want to hurt yourself or someone else? Patient reports no desire to harm self or others. Onset of symptoms was August 07, 2021. 15:48 Method Of Arrival: Ambulatory vg1 15:48 Acuity: JESSICA 3 vg1 Triage Assessment: 15:51 General: Appears in no apparent distress. comfortable, Behavior is calm, cooperative. vg1 Pain: Denies pain. 15:58 Neuro: Level of Consciousness is awake, alert, obeys commands, Oriented to person, vg1 place, time, situation, Gait is steady, Speech is normal, Facial symmetry: tongue is midline, Unable to blink Right eye. Pt was asked to puff the cheeks and was unable to keep lips together. Historical: - Allergies: 15:51 No Known Allergies; vg1 - Home Meds: 15:51 Glimepiride Oral [Active]; atorvastatin oral [Active]; Lisinopril Oral [Active]; vg1 Insulin [Active]; - PMHx: 15:51 Diabetes - IDDM; Hypertensive disorder; High Cholesterol; vg1 - Immunization history:: Adult Immunizations up to date, Client reports receiving the 2nd dose of the Covid vaccine. - Social history:: Smoking status: Patient reports the use of cigarette tobacco products, smokes one pack cigarettes per day. Screenin:55 Abuse screen: Denies threats or abuse. Denies injuries from another. Nutritional aj2 screening: No deficits noted. Tuberculosis screening: No symptoms or risk factors identified. Fall Risk None identified. Assessment: 16:55 Reassessment: Patient appears in no apparent distress at this time. Patient and/or aj2 family updated on plan of care and expected duration. Pain level reassessed. Patient is alert, oriented x 3, equal unlabored respirations, skin warm/dry/pink. 17:06 Pain: Complains of pain in right cheek Pain does not radiate. Pain currently is 4 out aj2 of 10 on a pain scale. Quality of pain is described as aching, Pain began Chronic episodic facial pain. Is episodic, Alleviated by medications, nothing. Aggravated by increased activity. 17:29 Reassessment: \\T\\ MRI. aj2 17:54 Reassessment: Patient appears in no apparent distress at this time. Patient and/or aj2 family updated on plan of care and expected duration. Pain level reassessed. Patient is alert, oriented x 3, equal unlabored respirations, skin warm/dry/pink. Returned from MRI. 18:58 Reassessment: Patient appears in no apparent distress at this time. Patient and/or aj2 family updated on plan of care and expected duration. Pain level reassessed. Patient is alert, oriented x 3, equal unlabored respirations, skin warm/dry/pink. Patient states feeling better. Vital Signs: 15:48 BP 161 / 95; Pulse 79; Resp 16; Temp 97.9; Pulse Ox 100% ; Weight 79.38 kg; Height 5 vg1 ft. 0 in. (152.40 cm); Pain 0/10; 16:55 BP 161 / 95; Pulse 79; Resp 16; Temp 97.9; Pulse Ox 100% ; aj2 18:58 BP 147 / 78; Pulse 82; Resp 18; Temp 97.8; Pulse Ox 100% ; aj2 19:32 BP 145 / 74; Pulse 80; Resp 18; Temp 98.0; Pulse Ox 99% on R/A; Pain 0/10; kc4 15:48 Body Mass Index 34.18 (79.38 kg, 152.40 cm) vg1 Dania Coma Score: 19:32 Eye Response: spontaneous(4). Verbal Response: oriented(5). Motor Response: obeys kc4 commands(6). Total: 15. ED Course: 15:38 Patient arrived in ED. rg4 15:51 Triage completed. vg1 15:51 Arm band placed on. vg1 16:46 Orlando Jama PA is PHCP. cp 16:46 Blayne Ford MD is Attending Physician. cp 16:48 Manohar Zheng is Primary Nurse. aj2 16:55 No apparent distress. Resting quietly. aj2 16:55 Patient has correct armband on for positive identification. aj2 16:55 No provider procedures requiring assistance completed. aj2 17:17 CT Head Brain wo Cont In Process Unspecified. EDMS 17:45 MRI - Brain Wo Cont In Process Unspecified. EDMS 17:54 No apparent distress. Resting quietly. aj2 18:29 COVID-19 : Document "Date of Symptom Onset" if Symptomatic. Sent. kg 18:35 Basic Metabolic Panel Sent. aj2 18:35 CBC with Diff Sent. aj2 18:35 LFT's Sent. aj2 18:35 Magnesium Sent. aj2 18:35 PT-INR Sent. aj2 18:58 No apparent distress. Resting quietly. aj2 19:20 Afshin Alfredo MD is Referral Physician. cp 19:20 Cb Craig DO is Referral Physician. cp 19:33 IV discontinued, intact, bleeding controlled, No redness/swelling at site. Pressure kc4 dressing applied. Administered Medications: 18:34 Drug: Benadryl (diphenhydrAMINE) 25 mg Route: IVP; Site: right antecubital; aj2 19:34 Follow up: Response: No adverse reaction kc4 18:34 Drug: NS 0.9% 500 ml Route: IV; Rate: bolus; Site: left antecubital; aj2 19:34 Follow up: Response: No adverse reaction; IV Status: Completed infusion kc4 18:35 Drug: Reglan (metoCLOPramide) 10 mg Route: IVP; Site: right antecubital; aj2 19:35 Follow up: Response: No adverse reaction kc4 18:35 Drug: Decadron - Dexamethasone 10 mg Route: IVP; Site: right antecubital; aj2 19:34 Follow up: Response: No adverse reaction kc4 Outcome: 19:21 Discharge ordered by . cp 19:33 Discharged to home with family. kc4 19:33 Condition: improved 19:33 Discharge instructions given to patient, family, Instructed on discharge instructions, follow up and referral plans. Demonstrated understanding of instructions, follow-up care, medications, Prescriptions given X 2. 19:35 Patient left the ED. kc4 Signatures: Dispatcher [employer] EDMS Orlando Jama PA PA cp Garcia, Rubi rg4 Magalis Pang RN RN 1 Ariana Thompson RN RN kg Manohar Zheng aj2 Junie Coon kc4 Corrections: (The following items were deleted from the chart) 18:49 18:31 CORONAVIRUS+MR.LAB.BRZ drawn and sent. kg EDMS 18:49 18:34 CORONAVIRUS+MR.LAB.BRZ drawn and sent. aj2 EDMS 18:50 18:34 CORONAVIRUS drawn and sent. aj2 EDMS
[2021-08-11 19:44] VITALS: BP 145/74; TEMP 98; O2SAT 99
--- NOTE | 2021-08-12 10:41 | EKG ---
Test Date: 2021-08-11 Test Time: 18:17:47 Marketing And Communications Officer: SUPA MEASUREMENT RESULTS: Intervals: Rate: 77 WA: 182 QRSD: 68 QT: 394 QTc: 445 [place]: P: 43 WA: 182 QRS: 54 T: 52 INTERPRETIVE STATEMENTS: Normal sinus rhythm Cannot rule out Anterior infarct, age undetermined Abnormal ECG Compared to ECG 01/28/2014 13:59:03 Myocardial infarct finding now present Electronically Signed On 08-12-21 10:39:50 CDT by Jerod Vincent
== END 2021-08-11 19:35 | disposition home or self-care (01) ==
LOC: ER 15:36
DX: G51.0 Bell's palsy (principal); I10 Essential (primary) hypertension; E11.9 Type 2 diabetes mellitus without complications; F17.210 Nicotine dependence, cigarettes, uncomplicated; Z20.822 Contact with and (suspected) exposure to COVID-19
CPT/HCPCS: 96361; 93005; 85025; 80048; 36415; 83735; 85610; 80076; 70450; 70551; 96375; 96374; 99284; U0003; J2765; J1200; J1100; J7040